=== PATIENT | male | born 1985 | race Caucasian/White ===

== ENCOUNTER 2017-05-08 08:43 | Emergency (ER) | payer SELFPAY ==
[2017-05-08 08:48] VITALS: BP 128/85; BMI 26.4
--- NOTE | 2017-05-08 08:51 | DR.GENAD ---
HPI - PCP Primary Care Physician: CANDI - HPI Comment HPI Comment: DENIES DISCHARGE FROM [facility], DYSURA OR FEVER. NO TRAUMA. - Complaint/Symptoms Chief Complaint Doctors Comments: PAIN LOW ABDOMEN PELVIS AND GROIN GOING INTO BOTH TESTICLES TIMES ONE DAY. Chief Complaint:: PT. STATES YESTERDAY HE STARTED FEELING DRAINED AND WEAK LIKE HE WAS GETTING THE FLU. HE C/O PELVIC PAIN THAT HAS RADIATED DOWN TO HIS TESTICLES. PT. STATES THE PAIN IS RELIEVED IF HE IS SITTING DOWN. PT. STATES IT IS PAINFUL WHEN HE ATTEMPTS TO URINATE. - Nurses notes reviewed Nurses Notes Review: Yes - Source History Provided: Patient - Mode of Arrival Mode of Arrival: Ambulatory - Timing Onset of Chief Complaint: 05/07/17 Came on: Suddenly - Duration Duration: Constant Duration: Days - Severity Severity: Moderate PMH - PMH Past Medical History: No Past Surgical History: No Surgical History: No History - Family History History of Family Medical Conditions: No Family Medical History: Diabetes Mellitus, Hypertension - Social History Does patient currently use any type of tobacco product: No Have you used tobacco products in the last 12 months: No Type of Tobacco Use: None Does any household member use tobacco: No Alcohol Use: Occasionally Do you use any recreational Drugs:: No Lives With: Spouse Lives Where: Home - infectious screening In the last 2 months have you had wt loss of >10#?: NO Have you had fever, night sweats or hemotysis?: No Have you traveled outside the country in the last 6 months?: No Isolation: Standard ROS - Review of Systems Constitutional: No Symptoms Reported Eyes: No Symptoms Reported ENTM: No Symptoms Reported Respiratoy: No Symptoms Reported Cardiovascular: No Symptoms Reported Gastrointestinal/Abdominal: Abdominal Pain. negative: Diarrhea, Nausea, Vomiting Genitourinary: Pain. negative: Discharge, Dysuria, Frequency, Hematuria Neurological: No Symptoms Reported Musculoskeletal: No Symptoms Reported Integumentary: No Symptoms Reported Hematologic/Lymphatic: No Symptoms Reported Endocrine: No Symptoms Reported All Other Systems: Reviewed and Negative PE - Vital Signs Vitals: Temperature 98.8 F Pulse Rate 107 Respiratory Rate 18 Blood Pressure 128/85 O2 Sat by Pulse Oximetry 98 - General Limitations: No Limitations General Appearance: Alert - Head Head Exam: Normal Inspection - Eyes Eye exam: Normal Appearance - ENT ENT Exam: Normal External Ear Exam External Ear Exam: Normal External Inspection TM/Canal Exam: Bilateral Normal Nose Exam: Normal Nose Exam Mouth Exam: Normal Inspection Throat Exam: Normal Inspection - Neck Neck Exam: Trachea Midline - Chest Chest Inspection: Symmetric Chest Wall Rise - Respiratory Respiratory Exam: Normal Lung Sounds Bilat Respiratory Exam: Bilateral Clear to Auscultation - Cardiovascular Cardiovascular Exam: Regular Rate, Normal Rhythm, Normal Heart Sounds - Abdominal Exam Abdominal Exam: Normal Bowel Sounds, Soft, Tenderness, Other (TENDERNESS GROINS AND BOTH TESTIS. NO DISCHARGE. NO HERNIA VISIBLE.) - Extremities Extremities Exam: Normal Inspection - Back Back Exam: Normal Inspection - Neurologic Neurological Exam: Alert, Oriented X3 - Psychiatric Psychiatric Exam: Normal Affect, Normal Mood - Skin Skin Exam: Normal Color MDM - Differential Diagnosis Differential Diagnosis: INGUINAL ADENITIS, INGUINIA HERNIA, ORCHITIS, KIDNEY STONE, UTI Course - Treatment Treatment: SEE ORDERS. - Education/Counseling Education/Counseling: Patient, Education Educated On: Treatment, Diagnosis, Needs for Follow Up ROR - Labs Reviewed Laboratory Results Reviewed?: Yes Result Diagrams: 05/08/17 09:10 05/08/17 09:10 Laboratory: WBC 13.3 X10^3/uL (3.6-10.0) H 05/08/17 09:10 RBC 5.00 X10^6/uL (4.7-6.0) 05/08/17 09:10 Hgb 14.8 g/dL (13.5-18.0) 05/08/17 09:10 Hct 43.1 % (42.0-54.0) 05/08/17 09:10 MCV 86.1 fL (80.0-100.0) 05/08/17 09:10 MCH 29.6 pg (27.0-34.0) 05/08/17 09:10 MCHC 34.4 g/dL (33.0-35.0) 05/08/17 09:10 RDW 12.3 % (11.6-16.5) 05/08/17 09:10 Plt Count 262 X10^3/uL (150.0-450.0) 05/08/17 09:10 MPV 8.1 fL (7.4-11.0) 05/08/17 09:10 Neut % 73.7 % (42.0-75.0) 05/08/17 09:10 Lymph % 12.9 % (21.0-51.0) L 05/08/17 09:10 [place] % 11.5 % (0.0-13.0) 05/08/17 09:10 Eos % 1.2 % (0.9-2.9) 05/08/17 09:10 Baso % 0.7 % (0.2-1.0) 05/08/17 09:10 Neut # 9.8 x10^3/uL (2.2-4.8) H 05/08/17 09:10 Lymph # 1.7 X10^3/uL (1.3-2.9) 05/08/17 09:10 [place] # 1.5 x10^3/uL (0.3-0.8) H 05/08/17 09:10 Eos # 0.2 x10^3/uL (0.0-0.2) 05/08/17 09:10 Baso # 0.1 X10^3/uL (0.0-0.1) 05/08/17 09:10 Absolute Nucleated RBC 0.0 /100WBC 05/08/17 09:10 Sodium 140 mmol/L (136-145) 05/08/17 09:10 Corrected Sodium TNP 05/08/17 09:10 Potassium 4.2 mmol/L (3.5-5.1) 05/08/17 09:10 Chloride 102 mmol/L (98-107) 05/08/17 09:10 Carbon Dioxide 31.9 mmol/L (21-32) 05/08/17 09:10 BUN 12 mg/dL (7-18) 05/08/17 09:10 Creatinine 0.98 mg/dL (0.70-1.30) 05/08/17 09:10 Est GFR (MDRD) Af Amer > 60 (>60) 05/08/17 09:10 Est GFR (MDRD) Non-Af > 60 (>60) 05/08/17 09:10 Glucose 97 mg/dL (65-99) 05/08/17 09:10 Calcium 9.1 mg/dL (8.5-10.1) 05/08/17 09:10 Corrected Calcium TNP 05/08/17 09:10 Total Bilirubin 0.70 mg/dL (0.2-1.0) 05/08/17 09:10 AST 19 Units/L (15-37) 05/08/17 09:10 ALT 31 Units/L (12-78) 05/08/17 09:10 Alkaline Phosphatase 53 Units/L (46-116) 05/08/17 09:10 Total Protein 7.8 g/dL (6.4-8.2) 05/08/17 09:10 Albumin 4.0 g/dL (3.4-5.0) 05/08/17 09:10 Globulin 3.8 g/dL (2.5-4.5) 05/08/17 09:10 Albumin/Globulin Ratio 1.1 Ratio (1.1-2.1) 05/08/17 09:10 Specimen Type Clean catch urine 05/08/17 09:17 Urine Color Yellow (YELLOW) 05/08/17 09:17 Urine Appearance Clear (CLEAR) 05/08/17 09:17 Urine pH 6.5 (5.0 - 8.0) 05/08/17 09:17 Ur Specific [place] 1.015 (1.000-1.030) 05/08/17 09:17 Urine Protein Negative (NEGATIVE) 05/08/17 09:17 Urine Glucose (UA) Negative (NEGATIVE) 05/08/17 09:17 Urine Ketones Negative (NEGATIVE) 05/08/17 09:17 Urine Occult Blood 1+ (NEGATIVE) 05/08/17 09:17 Urine Nitrite Negative (NEGATIVE) 05/08/17 09:17 Urine Bilirubin Negative (NEGATIVE) 05/08/17 09:17 Urine Urobilinogen Normal (NORMAL) 05/08/17 09:17 Ur Leukocyte Esterase Negative (NEGATIVE) 05/08/17 09:17 Urine RBC Rare /HPF (NEGATIVE) 05/08/17 09:17 Urine WBC None seen /HPF (NEGATIVE) 05/08/17 09:17 Ur Squamous Epith Cells Rare /HPF (NEGATIVE) 05/08/17 09:17 Urine Bacteria Negative /HPF (NEGATIVE) 05/08/17 09:17 Ur Culture Indicated? No/not indicated 05/08/17 09:17 Influenza Type A (PCR) Negative (NEGATIVE) 05/08/17 09:22 Influenza Type B (PCR) Negative (NEGATIVE) 05/08/17 09:22 - XRAY XRAY Interpreted by: Radiologist XRAY Findings: REPORT DISCUSS WITH PATIENT. - Diagnosis Discharge Problem: Abdominal pain, Testicular/scrotal pain, Acute adenitis - Discharge Plan Disposition: 01 HOME, SELF-CARE Condition: Stable Prescriptions: Doxycycline Hyclate 100 mg PO BID #20 tablet. Ibuprofen [MOTRIN TAB 600 MG *] 600 mg PO TID PRN #30 tab PRN Reason: Pain/Inflammation - Follow ups/Referrals Follow ups/Referrals: ALYCE CHRISTOPHER [Primary Care Provider] - 3 days - Instructions Instructions: Lymphadenopathy, Abdominal Pain, Adult, [id number] Additional Instructions: RETURN TO ED IF WORSE.
[2017-05-08 09:34] LABS: BASOPHILS # (AUTO) 0.1 X10^3/uL (0.0-0.1); BASOPHILS % (AUTO) 0.7 % (0.2-1.0); EOSINOPHILS # (AUTO) 0.2 x10^3/uL (0.0-0.2); EOSINOPHILS % (AUTO) 1.2 % (0.9-2.9); HEMATOCRIT 43.1 % (42.0-54.0); HEMOGLOBIN 14.8 g/dL (13.5-18.0); LYMPHOCYTES # (AUTO) 1.7 X10^3/uL (1.3-2.9); LYMPHOCYTES % (AUTO) 12.9 % (21.0-51.0); MEAN CORPUSCULAR HEMOGLOBIN 29.6 pg (27.0-34.0); MEAN CORPUSCULAR HGB CONC 34.4 g/dL (33.0-35.0); MEAN CORPUSCULAR VOLUME 86.1 fL (80.0-100.0); MEAN PLATELET VOLUME 8.1 fL (7.4-11.0); MONOCYTES # (AUTO) 1.5 x10^3/uL (0.3-0.8); MONOCYTES % (AUTO) 11.5 % (0.0-13.0); NEUTROPHILS # (AUTO) 9.8 x10^3/uL (2.2-4.8); NEUTROPHILS % (AUTO) 73.7 % (42.0-75.0); PLATELET COUNT 262 X10^3/uL (150.0-450.0); RED CELL DISTRIBUTION WIDTH 12.3 % (11.6-16.5); WHITE BLOOD COUNT 13.3 X10^3/uL (3.6-10.0)
[2017-05-08 09:37] LABS: BILIRUBIN,URINE NEGATIVE (NEGATIVE); BLOOD/HEMOGLOBIN,URINE 1+ (NEGATIVE); GLUCOSE, URINE NEGATIVE (NEGATIVE); KETONES,URINE NEGATIVE (NEGATIVE); LEUKOCYTE ESTERASE ,URINE NEGATIVE (NEGATIVE); NITRITES,URINE NEGATIVE (NEGATIVE); PH,URINE 6.5 (5.0 - 8.0); PROTEIN,URINE NEGATIVE (NEGATIVE); UROBILINOGEN,URINE NORMAL (NORMAL)
[2017-05-08 09:43] LABS: ALANINE AMINOTRANSFERASE 31 Units/L (12-78); ALKALINE PHOSPHATASE 53 Units/L (46-116); ASPARTATE AMINO TRANSFERASE 19 Units/L (15-37); BLOOD UREA NITROGEN 12 mg/dL (7-18); CALCIUM 9.1 mg/dL (8.5-10.1); CARBON DIOXIDE 31.9 mmol/L (21-32); CHLORIDE 102 mmol/L (98-107); CREATININE 0.98 mg/dL (0.70-1.30); SODIUM 140 mmol/L (136-145); TOTAL PROTEIN 7.8 g/dL (6.4-8.2); eGFR BLACK RACES > 60 (>60); eGFR NON BLACK RACES > 60 (>60)
[2017-05-08 09:44] LABS: APPEARANCE,URINE CLEAR (CLEAR); BACTERIA,URINE NEGATIVE /HPF (NEGATIVE); COLOR,URINE YELLOW (YELLOW); RBC,URINE RARE /HPF (NEGATIVE); SQUAMOUS EPITHELIAL CELL,UR RARE /HPF (NEGATIVE)
--- NOTE | 2017-05-08 11:07 | US ---
History: Lower abdominal pain radiating to the testicles Study: Scrotal ultrasound Comparison: None Findings: The right testicle measures 4.72 x 1.84 x 3.21 cm without mass. The left testicle measures 4.39 x 3.47 x 3.35 cm without mass. There is no hydrocele. There is good symmetrical color Doppler bl ood flow to each testicle. The epididymis is normal. Impression: Negative Reported By:
[2017-05-08] MEDS ORDERED: TORADOL 60 MG VIAL IM ONE (11:43)
[2017-05-08] MEDS ORDERED: ROCEPHIN VIAL 1 GM IM ONE (11:43)
[2017-05-08] MEDS ORDERED: ROCEPHIN VIAL 1 GM ONE (11:50)
[2017-05-08] MEDS ORDERED: TORADOL 60 MG VIAL ONE (11:50)
== END 2017-05-08 12:11 | disposition home or self-care (01) ==
LOC: ER 08:50
DX: N50.811 Right testicular pain (principal); N50.812 Left testicular pain; N50.82 Scrotal pain; L04.9 Acute lymphadenitis, unspecified; R10.84 Generalized abdominal pain
CPT/HCPCS: 36415; 76870; 80053; 81001; 85025; 87502; 96372; 99283; J0696; J1885